=== PATIENT | male | born 1990 | race Two or more races ===

== ENCOUNTER 2017-02-09 14:22 | Emergency (ER) | payer MEDICAID ==
[~2017-02-09] VITALS: Ht 175.3 cm; Wt 82.6 kg
[~2017-02-09 14:22] MED LIST: CYCLOBENZAPRINE10 MG ORAL; IBUPROFEN600 MG ORAL; NORCO 5-325 TA1 EACH ORAL
[2017-02-09 14:47] VITALS: BP 135/86
--- NOTE | 2017-02-09 14:58 | Emergency Room Report ---
History of Present Illness General Chief Complaint: Pain Source: Patient Present Illness HPI 26 YO male presents emergency department complaining of 2/10 in severity localized right wrist pain with swelling and erythema status post fall off a skateboard onto outstretched hand. Patient took Advil 3 hours prior to arrival patient reports tenderness in addition to exacerbation of pain upon flexion of the wrist and abduction of the wrist. Patient denies hitting his head or losing consciousness. Denies numbness tingling or loss of sensation or gross motor movements of the extremities, incontinence of bowel or bladder. Denies CP , Palpitations, LOC, AMS, dizziness, Changes in Vision, Sensation, paresthesias , or a sudden severe headache. Allergies: Coded Allergies: SULFA (SULFONAMIDE ANTIBIOTICS) (Verified Allergy, Unknown, 06/19/15) Patient History Past Medical History: see triage record Past Surgical History: none Pertinent Family History: none Immunizations: UTD Reviewed Nursing Documentation: PMH: Agreed, PSxH: Agreed Nursing Documentation-PMH Past Medical History: No Stated History Review of Systems All Other Systems: negative except mentioned in HPI Physical Exam Vital Signs Date Time Temp Pulse Resp B/P Pulse Ox O2 Delivery O2 Flow Rate FiO2 02/09/17 14:34 98.6 75 17 135/86 98 Room Air Sp02 EP Interpretation: reviewed, normal General Appearance: no apparent distress, alert, GCS 15, non-toxic Head: normocephalic, atraumatic Eyes: bilateral eye PERRL, bilateral eye normal inspection ENT: hearing grossly normal, normal pharynx, no angioedema, normal voice Neck: full range of motion, supple/symm/no masses Respiratory: lungs clear, normal breath sounds, speaking full sentences Cardiovascular #1: regular rate, rhythm, no edema Cardiovascular #2: 2+ radial (R), 2+ radial (L) Musculoskeletal: back normal, gait/station normal, normal range of motion, tender - positive snuff box tenderness, ttp to medial and dorsal portion of the right wrist with mild swelling and erythema noted, good cap refill, and pulses. Neurologic: alert, oriented x3, responsive, motor strength/tone normal, sensory intact, speech normal Psychiatric: judgement/insight normal, memory normal, mood/affect normal Skin: normal color, no rash, warm/dry, well hydrated Medical Decision Making PA Attestation Dr. Prieto is my supervising Physician whom patient management has been discussed with. Diagnostic Impression: Primary Impression: Right wrist sprain Qualified Codes: S63.501A - Unspecified sprain of right wrist, initial encounter ER Course 26 YO male presents emergency department complaining of 2/10 in severity localized right wrist pain with swelling and erythema status post fall off a skateboard onto outstretched hand. Patient took Advil 3 hours prior to arrival patient reports tenderness in addition to exacerbation of pain upon flexion of the wrist and abduction of the wrist. Patient denies hitting his head or losing consciousness. Ddx considered but are not limited to Fracture, dislocation, contusion, Sprain/ Strain/Spasm. Vital signs: are WNL, pt. is afebrile H&PE are most consistent with right wrist sprain and possible scaphoid fracture due to snuff box tenderness. ORDERS: - X-ray Right wrist - negative for fx, Dislocation, or significant soft tissue injury, per preliminary read in ED by Dr. Prieto ED INTERVENTIONS: - Tylenol po - Thumb spika splint applied to the right wrist by mold tooling technician. Pt. remains neurovascularly intact. DISCHARGE: At this time pt. is stable for d/c to home. Will provide printed patient care instructions, and any necessary prescriptions. Care plan and follow up instructions have been discussed with the patient prior to discharge. Last Vital Signs Date Time Temp Pulse Resp B/P Pulse Ox O2 Delivery O2 Flow Rate FiO2 02/09/17 14:47 98.6 17 135/86 98 Room Air 02/09/17 14:34 75 Disposition: HOME, SELF-CARE Condition: Stable Scripts Ibuprofen* (MOTRIN*) 600 Mg Tablet 600 MG ORAL THREE TIMES A DAY, #30 TAB 0 Refills Prov: Brittany Henson 02/09/17 Referrals: [facility],REFERRING (PCP) Patient Instructions: Scaphoid Fracture, Wrist Additional Instructions: Take medications as directed. Follow up with PCP in 3-5 days, will need repeat wrist x-rays in 1 week to completely r/o scaphoid fracture. Return sooner to ED if new symptoms occur, or current symptoms become worse. - Please note that this Emergency Department Report was dictated using [employer] telegrapher technology software, occasionally this can lead to erroneous entry secondary to interpretation by the dictation equipment. Brittany Henson February 09, 2017 14:58
[2017-02-09] MEDS ORDERED: IBUPROFEN600 MG ORAL (15:16)
[2017-02-09 15:25] VITALS: BP 135/86
--- NOTE | 2017-02-10 07:52 | Diagnostic Imaging Report ---
Clinical Indication:PAIN Technique: 3 views of the right wrist Comparison: None Findings: No acute fractures. No dislocations. Joint spaces are preserved Impression: Negative
== END 2017-02-09 15:25 | disposition home or self-care (01) ==
LOC: EMR 14:46
DX: S63.501A Unspecified sprain of right wrist, initial encounter (principal); Z88.2 Allergy status to sulfonamides; V00.131A Fall from skateboard, initial encounter; Y93.51 Activity, roller skating (inline) and skateboarding; Y92.9 Unspecified place or not applicable
CPT/HCPCS: 29280; 99283